=== PATIENT | female | born 2000 | race Caucasian/White ===

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

== ENCOUNTER 2022-05-22 09:49 | Emergency (ER) | payer OTHER, SELFPAY ==
--- NOTE | ~2022-05-22 | US_ITS ---
EXAMINATION: US OB <= 14 weeks fetus DATE: 05/22/2022 13:30 INDICATION: Vaginal bleeding and right-sided abdominal pain during first trimester TECHNIQUE: Real-time pelvic transabdominal and transvaginal ultrasound was performed. COMPARISON: None. FINDINGS: The uterus measures 10.2 x 8.1 x 6.5 cm. There is an intrauterine gestational sac. The cer vical length is 2.7 cm. A yolk sac is identified. heart motion is identified measuring 180 beat s per minute (bpm) by M-mode Doppler. The crown rump length measures 2.2 cm , which correlates with an estimated gestational age of 9 weeks and 0 day(s) (+/-) 6 day(s). The right ovary measures 3.5 x 3.5 x 2.5 cm. The left ovary measures 2.4 x 1.9 x 1.7 cm. There is nor mal vascular flow in the ovaries. There is no free fluid in the pelvis. IMPRESSION: 1. Live intrauterine with an estimated gestational age of 9 weeks and 0 day(s) (+/-) 6 day( s) and an estimated delivery date of 12/25/2022. Reviewed, dictated and finalized at location A. IMPRESSION: 1. Live intrauterine with an estimated gestational age of 9 weeks and 0 day(s) (+/-) 6 day(s) and an estimated delivery date of 12/25/2022.
[2022-05-22 10:10] VITALS: BP 130/70; PULSE 99; RESP 16; TEMP 36.6; O2SAT 100
[2022-05-22 10:30] LABS: Basophils Percent Auto 0.6 % (0.2-1.2); Eosinophils Absolute Auto 0.1 K/mm3 (0-0.3); Eosinophils Percent Auto 1.4 % (0-4.4); Hematocrit 36.6 % (37.0-47.0); Immature Granulocyte Absolute 0.03 K/mm3 (0.00-0.031); Immature Granulocyte Percent A 0.5 % (0-0.5); Lymphocytes Absolute Auto 1.48 K/mm3 (0.9-3.2); Lymphocytes Percent Auto 22.4 % (18.3-44.2); Mean Corpuscular HGB Conc 32.8 g/dl (32-36); Mean Corpuscular Hemoglobin 29.8 pg (26-34); Mean Corpuscular Volume 90.8 fl (80-100); Mean Platelet Volume 9.6 fl (7.4-10.4); Monocytes Absolute Auto 0.4 K/mm3 (0.1-0.6); Monocytes Percent Auto 5.9 % (2.6-8.5); Neutrophils Absolute Auto 4.6 K/mm3 (1.3-6.7); Neutrophils Percent Auto 69.2 % (45.5-73.1); Platelet Count Result 193 k/mm3 (150-375); Red Blood Count 4.03 M/mm3 (4.2-5.4); Red Cell Distribution Width 12.1 % (11.5-14.5); White Blood Count 6.6 K/mm3 (4.5-10.0)
--- NOTE | 2022-05-22 12:26 | ED.PREGNANCY ---
HPI - General Chief complaint: Vaginal Bleeding <CT Webster Last Filed: 05/22/22 18:19> Stated complaint: 8 wks preg, bleeding <CT Webster Last Filed: 05/22/22 18:19> Time Seen by Provider: 05/22/22 12:14 <CT Webster Last Filed: 05/22/22 18:19> History of Present Illness HPI Narrative: 22-year-old female who is currently about 8 weeks by last menstrual cycle here for evaluation of vaginal bleeding with clots and some right-sided abdominal cramping over the past 2 days. Patient states this is her first , she established with an STEREO OPERATOR at [facility] and has her first appointment next week, but has not yet had an ultrasound to confirm intrauterine . She did have vaginal intercourse 2 days ago. No nausea, vomiting, back pain, dysuria, lightheadedness or weakness. <TC Webster Last Filed: 05/22/22 18:19> Related Data Home medications: Home Medications Medication Instructions Recorded Confirmed amoxicillin 875 mg tablet 875 mg PO Q12H 10/16/21 naproxen 500 mg tablet 500 mg PO BID PRN Pain 10/16/21 <Felicia Meehan PA-C - Last Filed: 05/22/22 18:19> Allergies/Adverse reactions: Allergies Allergy/AdvReac Type Severity Reaction Status Date / Time No Known Allergies Allergy Verified 10/16/21 09:18 <CT Webster Last Filed: 05/22/22 18:19> Review of Systems Review of Systems: Gen.: Denies fevers or chills Eyes: Denies eye pain or visual change ENT: Denies congestion Respiratory: Denies shortness of breath or cough CV: Denies chest pain or palpitations GI: Reports lower abdominal pain. Denies nausea, emesis or diarrhea reports vaginal bleeding. Denies burning, urgency, frequency or hematuria Musculoskeletal: Denies back pain or muscle pain Neuro: Denies numbness, tingling, weakness or focal weakness Skin: Denies rash Except as documented, all other systems reviewed and negative <Felicia Meehan PA-C - Last Filed: 05/22/22 18:19> Exam Narrative: APPEARANCE: Well appearing, no pain in distress, well-nourished. Head: Normocephalic and atraumatic. EYES: PERRLA/EOMI, conjunctivae clear NOSE: No nasal drainage EARS: External ear normal in appearance THROAT: Oropharynx is clear. Mucous membranes are moist. NECK: Supple. No adenopathy, no masses. RESPIRATORY: Airway patent, respirations nonlabored. Clear to auscultation bilaterally, no rales, rhonchi, wheezing. CARDIOVASCULAR: Regular rate and rhythm without murmurs, rubs, or gallops. : exam performed with hr coordinator meryl. ganesh sign positive; moderate amount of white vaginal discharge noted but no blood. cervical os closed. ABDOMINAL: Normoactive bowel sounds. Soft, nontender, nondistended. No rebound tenderness or guarding. MUSCULOSKELETAL: Extremities are warm and well-perfused. Moves all extremities well. No edema. NEURO: Normal speech. No focal neurologic deficits. SKIN: Skin is warm and dry. No rashes. PSYCHIATRIC: Normal affect/mood. <Felicia Meehan PA-C - Last Filed: 05/22/22 18:19> Course WELT ROUGHER/PA Physician Supervision For this patient encounter, I reviewed the WELT ROUGHER or PA documentation, treatment plan, and medical decision making <Jimi Barajas MD - Last Filed: 05/22/22 20:14> Vital Signs Vital signs: Vital Signs Temperature 97.9 F 05/22/22 10:10 Pulse Rate 99 05/22/22 10:10 Respiratory Rate 16 05/22/22 10:10 Blood Pressure 130/70 05/22/22 10:10 Pulse Oximetry 100 05/22/22 10:10 Oxygen Delivery Room Air 05/22/22 10:10 Temperature 97.9 F 05/22/22 10:10 Pulse Rate 89 05/22/22 12:41 Respiratory Rate 16 05/22/22 10:10 Blood Pressure 110/71 05/22/22 12:41 Pulse Oximetry 100 05/22/22 10:10 Oxygen Delivery Room Air 05/22/22 10:10 <Felicia Meehan PA-C - Last Filed: 05/22/22 18:19> Grisel
[2022-05-22 12:39] VITALS: BP 122/73; PULSE 73
[2022-05-22 12:40] VITALS: BP 118/72; PULSE 78
[2022-05-22 12:41] VITALS: BP 110/71; PULSE 89
[2022-05-22 14:30] LABS: Appearance Urine Clear (Clear); Bilirubin Urine Negative (Negative); Blood Urine Negative (Negative); Glucose Urine UA Negative (Negative); Ketones Urine Negative (Negative); Leukocyte Esterase Ur Negative LEU/UL (Negative); Nitrate Urine Negative (Negative); Protein Urine Negative (Negative); Specific Grav Ur 1.015 (1.001-1.035); Urobilinogen Urine 0.2 mg/dL (<2.0); pH Urine 8.5 (5.0-9.0)
[2022-05-22 14:33] LABS: Add Urine Microscopic? NO; Color Urine Light Yellow (Yellow)
== END 2022-05-22 14:33 | disposition home or self-care (01) ==
PROVIDERS: Emergency Medicine; Physician Assistant; Emergency Provider Emergency Medicine; PCP Nurse Practitioner Family
DX: O20.9 Hemorrhage in early pregnancy, unspecified (principal); Z3A.09 9 weeks gestation of pregnancy
CPT/HCPCS: 36415; 76801; 81003; 84702; 85025; 85461; 99284

== ENCOUNTER 2022-06-18 08:58 | Outpatient (CLI) | payer OTHER, SELFPAY ==
--- NOTE | ~2022-06-18 | US_ITS ---
EXAMINATION: US OB <= 14 weeks fetus DATE: 06/18/2022 10:15 INDICATION: Supervision of normal TECHNIQUE: Real-time transabdominal and transvaginal obstetric ultrasound. FINDINGS: Ultrasound dated 05/22/2022 The uterus measures 11 x 10 x 6 cm. There is an intrauterine gestational sac, with pole identif ied. The crown rump length measures 6.65 cm. Appropriate interval growth.. heart tones are identified measuring 157 BPM. Right ovary measures 2.7 x 1.9 x 1.6 cm and contains a 1.5 cm selena us luteal cyst. Left ovary is unremarkable measuring 2.2 x 1.8 x 1.8 cm. IMPRESSION: 1. SL IUP with an EGA of 12 weeks, 6 days (EDC by initial ultrasound of 12/25/2022). Reviewed, dictated and finalized at location A. IMPRESSION: 1. SL IUP with an EGA of 12 weeks, 6 days (EDC by initial ultrasound of 023).
== END 2022-06-18 08:59 | disposition home or self-care (01) ==
LOC: CHSIMG 09:00
PROVIDERS: PCP Nurse Practitioner; Visit Provider Nurse Practitioner Family
DX: Z34.91 Encounter for supervision of normal pregnancy, unspecified, first trimester (principal)
CPT/HCPCS: 76801

== ENCOUNTER 2022-12-31 15:19 | Emergency (ER) | payer OTHER, SELFPAY ==
[2022-12-31] VITALS (32 sets, daily range): BP systolic 117–151; BP diastolic 80–97; PULSE 83–104; RESP 10–22; TEMP 36.4; O2SAT 99
--- NOTE | 2022-12-31 19:30 | ED.RECABL ---
HPI - Recheck/Abnormal Lab/Rx General Chief Complaint: Recheck/Abnormal Lab/Rx <CT Webster Last Filed: 12/31/22 22:46> Stated Complaint: wound bleeding <CT Webster Last Filed: 12/31/22 22:46> Time Seen by Provider: 12/31/22 19:23 <CT Webster Last Filed: 12/31/22 22:46> History of Present Illness HPI narrative: Patient is a 22-year-old female here for evaluation of vaginal bleeding for the past 8 hours. She is 9 days postop from performed at [facility]. States that she has gone through 3 menstrual pads and has had moderate to large amount of bleeding. Denies blood clots. Denies complications of surgery. She contacted her CONSULTATIVE SALES ASSOCIATE (Dr. Dahiana Sheikh) who recommended ED evaluation. She reports mild lower pelvic cramping. <CT Webster Last Filed: 12/31/22 22:46> Related Data Home Medications: Home Medications Medication Instructions Recorded Confirmed amoxicillin 875 mg tablet 875 mg PO Q12H 10/16/21 naproxen 500 mg tablet 500 mg PO BID PRN Pain 10/16/21 <CT Webster Last Filed: 12/31/22 22:46> Allergies/Adverse Reactions: Allergies Allergy/AdvReac Type Severity Reaction Status Date / Time No Known Allergies Allergy Verified 10/16/21 09:18 <CT Webster Last Filed: 12/31/22 22:46> Review of Systems Review of Systems: Gen: Denies fevers or chills Eyes: Denies eye pain or visual change ENT: Denies congestion Respiratory: Denies shortness of breath or cough CV: Denies chest pain or palpitations GI: Reports lower abdominal cramping. : Reports vaginal bleeding Musculoskeletal: Denies back pain or muscle pain Neuro: Denies numbness, tingling, weakness or focal weakness Skin: Denies rash Except as documented, all other systems reviewed and negative <CT Webster Last Filed: 12/31/22 22:46> Exam Narrative: APPEARANCE: Well appearing, no pain in distress, well-nourished. Head: Normocephalic and atraumatic. EYES: PERRLA/EOMI, conjunctivae clear NOSE: No nasal drainage EARS: External ear normal in appearance THROAT: Oropharynx is clear. Mucous membranes are moist. NECK: Supple. No adenopathy, no masses. RESPIRATORY: Airway patent, respirations nonlabored. Clear to auscultation bilaterally, no rales, rhonchi, wheezing. CARDIOVASCULAR: Regular rate and rhythm without murmurs, rubs, or gallops. : Exam performed with contact lens lathe operator Kristin. Cervical os is closed. There is a small to moderate amount of blood in the vaginal vault but no brisk bleeding or hemorrhage noted. There are no blood clots. ABDOMINAL: Normoactive bowel sounds. Soft, nontender, nondistended. No rebound tenderness or guarding. MUSCULOSKELETAL: Extremities are warm and well-perfused. Moves all extremities well. No edema. NEURO: Normal speech. No focal neurologic deficits. SKIN: scar is healing well with no surrounding erythema PSYCHIATRIC: Normal affect/mood.. <Felicia Meehan PA-C - Last Filed: 12/31/22 22:46> Course CUSTOMER ENGAGEMENT REPRESENTATIVE/PA Physician Supervision This is a was performed by both a physician and an APC. I performed all aspects of the MDM as documented w/ the following additions: 22-year-old female presenting approximately 1 week after a with vaginal bleeding. No concerning findings on exam. Discussed with the OBGYN and she is cleared for outpatient follow-up. All questions answered. Patient in agreement w/ disposition. <Driss Francisco MD - Last Filed: 01/05/23 19:36> Vital Signs Vital signs: Vital Signs Temperature 97.6 F 12/31/22 15:33 Pulse Rate 97 12/31/22 15:33 Respiratory Rate 18 12/31/22 15:33 Blood Pressure 136/80 12/31/22 15:33 Pulse Oximetry 99 12/31/22 15:33 Temperature 97.6 F 12/31/22 15:33 Pulse Rate 85 12/31/22 22:46 Respiratory Rate 17 12/31/22 22:46 Blood Pressure 137/81
[2022-12-31 20:03] LABS: Basophils Percent Auto 0.4 % (0.2-1.2); Eosinophils Absolute Auto 0.2 K/mm3 (0-0.3); Eosinophils Percent Auto 1.5 % (0-4.4); Hematocrit 35.3 % (37.0-47.0); Immature Granulocyte Absolute 0.04 K/mm3 (0.00-0.031); Immature Granulocyte Percent A 0.4 % (0-0.5); Lymphocytes Percent Auto 18.2 % (18.3-44.2); Mean Corpuscular HGB Conc 31.2 g/dl (32-36); Mean Corpuscular Hemoglobin 29.4 pg (26-34); Mean Corpuscular Volume 94.4 fl (80-100); Mean Platelet Volume 9.3 fl (7.4-10.4); Monocytes Absolute Auto 0.5 K/mm3 (0.1-0.6); Monocytes Percent Auto 5.3 % (2.6-8.5); Neutrophils Absolute Auto 7.4 K/mm3 (1.3-6.7); Neutrophils Percent Auto 74.2 % (45.5-73.1); Platelet Count Result 316 k/mm3 (150-375); Red Blood Count 3.74 M/mm3 (4.2-5.4); Red Cell Distribution Width 13.5 % (11.5-14.5); White Blood Count 9.9 K/mm3 (4.5-10.0)
[2022-12-31 20:19] LABS: Anion Gap 6 mmol/L (8-16); Blood Urea Nitrogen 12 mg/dL (7-17); Calcium 9.2 mg/dL (8.4-10.2); Carbon Dioxide 27 mmol/L (22-30); Chloride 105 mmol/L (98-107); Estimated Glomerular Filt Rate > 60; Glucose 86 mg/dL (65-110); Potassium 4.2 mmol/L (3.4-5.0); Sodium 138 mmol/L (137-145)
[2022-12-31 20:36] LABS: Beta HCG Quantitative 14.47 mIU/ML
--- NOTE | 2022-12-31 20:36 | PC.NURSE ---
Patient nursing infant. She was instructed to call this RN when finished so that IV may be started.
[2022-12-31] MEDS: SODIUM CHLORIDE 0.9% IV 1,000 ML 999 ML IV CONT (21:01)
--- NOTE | 2022-12-31 21:57 | PC.NURSE ---
EDP made aware of patient's BP and c/o MITCHELL. Orders for UA>
[2022-12-31 22:29] LABS: Appearance Urine Clear (Clear); Bilirubin Urine Negative (Negative); Blood Urine Negative (Negative); Color Urine Yellow (Yellow); Glucose Urine UA Negative (Negative); Ketones Urine Negative (Negative); Leukocyte Esterase Ur Negative LEU/UL (Negative); Nitrate Urine Negative (Negative); Protein Urine Negative (Negative); Specific Grav Ur 1.007 (1.001-1.035); Urobilinogen Urine 0.2 mg/dL (<2.0); pH Urine 6.5 (5.0-9.0)
[2022-12-31 22:41] LABS: Add Urine Microscopic? NO
== END 2022-12-31 23:16 | disposition home or self-care (01) ==
PROVIDERS: Emergency Provider Physician Assistant; PCP Obstetrics & Gynecology
DX: O72.2 Delayed and secondary postpartum hemorrhage (principal)
CPT/HCPCS: 36415; 80048; 81003; 84702; 85025; 86850; 86900; 86901; 96360; 99284; J7030